=== PATIENT | male | born 2000 ===

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

== ENCOUNTER 2022-04-12 03:41 | Emergency (ER) | payer OTHER ==
[~2022-04-12] VITALS: Ht 177.8 cm; Wt 81.6 kg
== END 2022-04-12 06:05 | disposition home or self-care (01) ==
LOC: EMR PED 03:41
DX: J03.80 Acute tonsillitis due to other specified organisms (principal)